=== PATIENT | male | born 1975 | race Hispanic/Latino ===

== ENCOUNTER 2023-03-05 10:54 | Emergency (ER) | payer OTHER, SELFPAY ==
[~2023-03-05] VITALS: Ht 165.1 cm; Wt 83.9 kg
[2023-03-05 10:58] VITALS: BP 151/94
== END 2023-03-05 12:53 | disposition left against medical advice (07) ==
LOC: EDH 10:54
DX: R21 Rash and other nonspecific skin eruption (principal); Z53.21 Procedure and treatment not carried out due to patient leaving prior to being seen by health care provider
CPT/HCPCS: 99281

== ENCOUNTER 2024-04-14 07:55 | Emergency (ER) | payer BC ==
[~2024-04-14] VITALS: Ht 165.1 cm; Wt 81.6 kg
[2024-04-14 09:06] LABS: BASOPHILS # (AUTO) 0.06 K/uL (0.00-0.20); BASOPHILS % (AUTO) 0.7 % (0.0-5.0); EOSINOPHILS # (AUTO) 0.04 K/uL (0.00-0.70); EOSINOPHILS % (AUTO) 0.5 % (0.0-8.0); HEMATOCRIT 48.6 % (42-54); IMMATURE GRANULOCYTE ABSOLUTE 0.03 K/uL (0-1); LYMPHOCYTES # (AUTO) 1.2 K/uL (1.0-4.8); LYMPHOCYTES % (AUTO) 14.3 % (21.0-51.0); MEAN CORPUSCULAR HEMOGLOBIN 31.6 pg (27.0-33.0); MEAN CORPUSCULAR HGB CONC 34.6 g/dL (32.0-36.0); MEAN CORPUSCULAR VOLUME 91.5 fL (79-99); MONOCYTES # (AUTO) 0.5 K/uL (0.1-1.0); MONOCYTES % (AUTO) 6.1 % (3.0-13.0); NEUTROPHILS # (AUTO) 6.7 K/uL (1.8-7.7); PLATELET COUNT (AUTO) 206 K/uL (130-400); RED BLOOD CELL COUNT(AUTO) 5.31 MIL/uL (4.50-6.20); RED CELL DISTRIBUTION WIDTH 12.1 % (11.0-15.5); WHITE BLOOD COUNT (AUTO) 8.6 K/uL (4.8-10.8)
[2024-04-14 09:24] LABS: INR 1.1 (0.85-1.15); PROTHROMBIN TIME 11.8 SEC (9.6-11.6)
[2024-04-14 09:25] LABS: PARTIAL THROMBOPLASTIN TIME 29.7 SEC (26.3-35.5)
[2024-04-14] MEDS: ZOSYN 3.375GM +NS 50ML IV ONE (09:32)
[2024-04-14 09:38] LABS: POTASSIUM 3.8 mmol/L (3.5-5.1)
[2024-04-14] MEDS ORDERED: VANCOMYCIN PROTOCOL PER PHARMACY IV SCH (10:00)
[2024-04-14] MEDS ORDERED: ONDANSETRON 4MG INJ IVP PRN (10:00)
[2024-04-14] MEDS ORDERED: KETOROLAC 15MG/ML VIAL (15MG/ML) IV PRN (10:00)
[2024-04-14] MEDS ORDERED: MORPHINE 2 MG SYG IVP PRN (10:00)
[2024-04-14] MEDS ORDERED: acetaMINOPHEN 500 MG TABLET PO PRN (10:00)
[2024-04-14] MEDS: VANCOMYCIN KIT 1 GM/250 ML IV.KIT IV ONE (10:13)
[2024-04-14] MEDS: 0.9%NACL 1000ML 1,000 ML IV SCH (10:13)
[2024-04-14] MEDS: FAMOTIDINE 20MG TAB PO SCH (10:14)
[2024-04-14] MEDS ORDERED: ceFEPime HCL 2 GM VIAL IVPB SCH ×2 (13:00)
[2024-04-14 13:09] VITALS: BP 138/98; PULSE 83; RESP 17; O2SAT 96
[2024-04-14 13:21] LABS: ALBUMIN 3.5 g/dL (3.5-5.0); BILIRUBIN,DIRECT 0.2 mg/dL (0.0-0.3); BILIRUBIN,TOTAL 0.7 mg/dL (0.2-1.0); MAGNESIUM 2.4 mg/dL (1.80-2.40); TOTAL PROTEIN, SERUM 7.9 g/dL (6.0-8.3)
[2024-04-14] MEDS ORDERED: METRONIDAZOLE 500MG/100ML BAG 100 ML IVPB SCH (14:00)
[2024-04-14] MEDS ORDERED: VANCOMYCIN 1.25 GM/250 ML BAG 250 ML IV SCH (22:00)
[2024-04-15] MEDS ORDERED: ENOXAPARIN SODIUM 40 MG/0.4 ML SYRINGE SQ SCH (09:00)
== END 2024-04-14 13:20 | disposition home or self-care (01) ==
LOC: EDH 07:55
DX: L03.116 Cellulitis of left lower limb (principal); I10 Essential (primary) hypertension; Z98.890 Other specified postprocedural states
CPT/HCPCS: 99284; 96365; 10060; 96366; 80076; 83735; 80048; 85025; 85610; 85730; 85651; 87040; 87070; 87076; 87086; 87186; 83605 ×2; 86140; 36415; 73630; 96368; 84145; J2543; J3370; 3370